=== PATIENT | male | born 1935 | race Caucasian/White ===

== ENCOUNTER → 2016-12-07 | Outpatient (CLI) | payer MEDICARE, OTHER | END | disposition home or self-care (01) | LOC: WOUND 09:23 | PROVIDERS: ATTEND Internal Medicine | DX: L89.610 Pressure ulcer of right heel, unstageable (principal); F03.90 Unspecified dementia, unspecified severity, without behavioral disturbance, psychotic disturbance, mood disturbance, and anxiety; M81.0 Age-related osteoporosis without current pathological fracture; Z87.891 Personal history of nicotine dependence | CPT/HCPCS: G0463; WOU0463 ==

== ENCOUNTER → 2016-12-14 | Outpatient (CLI) | payer MEDICARE, OTHER | END | disposition home or self-care (01) | LOC: WOUND 10:00 | PROVIDERS: ATTEND Internal Medicine | DX: L89.610 Pressure ulcer of right heel, unstageable (principal); S91.301D Unspecified open wound, right foot, subsequent encounter; M81.0 Age-related osteoporosis without current pathological fracture; F03.90 Unspecified dementia, unspecified severity, without behavioral disturbance, psychotic disturbance, mood disturbance, and anxiety; Z87.891 Personal history of nicotine dependence; X58.XXXD Exposure to other specified factors, subsequent encounter | CPT/HCPCS: 97597 ==

== ENCOUNTER → 2016-12-21 | Outpatient (CLI) | payer MEDICARE, OTHER | END | disposition home or self-care (01) | LOC: WOUND 10:13 | PROVIDERS: ATTEND Internal Medicine | DX: L89.610 Pressure ulcer of right heel, unstageable (principal); F03.90 Unspecified dementia, unspecified severity, without behavioral disturbance, psychotic disturbance, mood disturbance, and anxiety; M81.0 Age-related osteoporosis without current pathological fracture; Z87.891 Personal history of nicotine dependence; Z72.89 Other problems related to lifestyle | CPT/HCPCS: 97597 ==

== ENCOUNTER → 2016-12-28 | Outpatient (CLI) | payer MEDICARE, OTHER | END | disposition home or self-care (01) | LOC: WOUND 10:38 | PROVIDERS: ATTEND Internal Medicine | DX: L89.613 Pressure ulcer of right heel, stage 3 (principal); L89.610 Pressure ulcer of right heel, unstageable; F03.90 Unspecified dementia, unspecified severity, without behavioral disturbance, psychotic disturbance, mood disturbance, and anxiety; M81.0 Age-related osteoporosis without current pathological fracture; Z87.891 Personal history of nicotine dependence; Z72.89 Other problems related to lifestyle | CPT/HCPCS: 97597 ==

== ENCOUNTER → 2017-01-04 | Outpatient (CLI) | payer MEDICARE, OTHER | END | disposition home or self-care (01) | LOC: WOUND 10:34 | PROVIDERS: ATTEND Internal Medicine | DX: L89.610 Pressure ulcer of right heel, unstageable (principal); F03.90 Unspecified dementia, unspecified severity, without behavioral disturbance, psychotic disturbance, mood disturbance, and anxiety; M81.0 Age-related osteoporosis without current pathological fracture; Z72.89 Other problems related to lifestyle; Z87.891 Personal history of nicotine dependence | CPT/HCPCS: 97597 ==

== ENCOUNTER → 2017-01-18 | Outpatient (CLI) | payer MEDICARE, OTHER | END | disposition home or self-care (01) | LOC: WOUND 10:15 | PROVIDERS: ATTEND Internal Medicine | DX: L89.613 Pressure ulcer of right heel, stage 3 (principal); F03.90 Unspecified dementia, unspecified severity, without behavioral disturbance, psychotic disturbance, mood disturbance, and anxiety; Z87.891 Personal history of nicotine dependence; Z72.89 Other problems related to lifestyle | CPT/HCPCS: 97597 ==

== ENCOUNTER → 2017-01-25 | Outpatient (CLI) | payer MEDICARE, OTHER | END | disposition home or self-care (01) | LOC: WOUND 10:20 | PROVIDERS: ATTEND Internal Medicine | DX: L89.613 Pressure ulcer of right heel, stage 3 (principal); F03.90 Unspecified dementia, unspecified severity, without behavioral disturbance, psychotic disturbance, mood disturbance, and anxiety; M81.0 Age-related osteoporosis without current pathological fracture; Z87.891 Personal history of nicotine dependence; Z72.89 Other problems related to lifestyle | CPT/HCPCS: 97597 ==

== ENCOUNTER → 2017-01-25 | Outpatient (CLI) | payer MEDICARE, OTHER | END | disposition home or self-care (01) | LOC: CVU 14:51 | PROVIDERS: ATTEND Internal Medicine | DX: M79.89 Other specified soft tissue disorders (principal); R60.0 Localized edema; S91.301D Unspecified open wound, right foot, subsequent encounter; X58.XXXD Exposure to other specified factors, subsequent encounter | CPT/HCPCS: 93970 ==